=== PATIENT | male | born 1965 | race Caucasian/White ===

== ENCOUNTER 2017-02-27 07:58 | Day surgery (SDC) | payer BC ==
[~2017-02-27 07:58] MED LIST: Buffered Lidocaine 0.9% SYRIN* 5 ML/SYR SYRINGE INTRADERM ONE
[2017-02-27] MEDS ORDERED: Lidocain 1% EPI 1:100,000 * 30 ML MDV ONE (08:46)
[2017-02-27] MEDS ORDERED: BSS OPTH.SOL* BTL ONE (08:46)
[2017-02-27] MEDS ORDERED: Neomycin/Polymy/Dex OPHTH.OIN* 3.5 GM ONE (08:47)
[2017-02-27] MEDS ORDERED: Midazolam* 1 MG/ML 2 ML VIAL (2 MG) ONE ×3 (08:52→09:32)
[2017-02-27] MEDS ORDERED: fentaNYL* 50 MCG/ML 2 ML VIAL (100 MCG VIAL) ONE (08:52)
[2017-02-27] MEDS ORDERED: Bacitracin OPHTH.OINT* 3.5 GM ONE (08:53)
[2017-02-27 09:59] VITALS: BP 111/68
--- NOTE | 2017-02-27 14:53 | OP ---
DATE OF OPERATION: 02/27/17 - [facility] DATE OF : 63 SURGEON: Twin Hernandez MD HIV NURSE: None. ANESTHESIOLOGIST: Hernandez Cabrera MD ANESTHESIA: Local with MAC. PRE-OP DIAGNOSIS: Basal cell carcinoma, left lower lid at margin. POST-OP DIAGNOSIS: Basal cell carcinoma, left lower lid at margin. OPERATIVE PROCEDURE: Wedge resection of left lower lid with lateral canthotomy and inferior cantholysis for reconstruction for biopsy of basal cell carcinoma, left lower lid. COMPLICATIONS: None. BLOOD LOSS: Minimal. DESCRIPTION OF PROCEDURE: The patient was brought to the operating room and a marking pen was used to lars the margins of the pentagonal incision surrounding the suspicious lesion of the left lower lid. The patient was given a small amount of intravenous sedation. At that time, 1 cc of 1% lidocaine with epinephrine was injected into the left lower eyelid. The patient was subsequently prepped and draped in the usual sterile fashion for ophthalmic surgery. A Reddy tenotomy scissors was used to cut through the full thickness of eyelid and create the pentagonal resection specimen. The specimen was tagged at the lateral margin with a suture and taken off the field. Hemostasis was achieved with gentle cauterization as needed. Inspection of the defect revealed an approximately 12-mm defect of the left lower lid. Although one could hold the edges adjacent for closure, this seemed to put undue tension on the lower eyelid. Thus, a small amount of 1% lidocaine with epinephrine was injected into the lateral canthal area and a lateral canthotomy followed by an inferior cantholysis was performed. This freed the lateral aspect of the lower lid sufficiently to allow a non-tension closure of the original wound. A series of interrupted 6-0 Vicryl sutures were used to close the deep planes including the tarsal plate. A series of 6-0 silk sutures were used to close the lid margin starting at the vera line and moving anteriorly and inferiorly through the skin. A 6-0 silk was also used to close the skin defect at the lateral canthotomy site. At the end of the case, the eyelid appeared without undue tension and with smooth contour. There was no active bleeding. The patient was able to open and close the eye smoothly. Topical bacitracin ointment was placed on the wounds in the eye. The specimen was sent to the pathology lab. The patient was sent to recovery room in stable condition with postop instructions and followup appointment given. [id number]/[facility] #: [id number] ALFREDO
== END 2017-02-27 10:08 | disposition home or self-care (01) ==
LOC: OREAST 07:58
PROVIDERS: ATTEND Ophthalmology
DX: C44.119 Basal cell carcinoma of skin of left eyelid, including canthus (principal); I10 Essential (primary) hypertension; Z87.891 Personal history of nicotine dependence; Z79.01 Long term (current) use of anticoagulants; I51.9 Heart disease, unspecified; G47.33 Obstructive sleep apnea (adult) (pediatric)
CPT/HCPCS: 88305; A9270-GY; J2250; J3010

== ENCOUNTER 2017-08-24 05:55 | Day surgery (SDC) | payer OTHER ==
--- NOTE | 2017-08-17 12:06 | HP ---
HISTORY AND PHYSICAL: DATE OF ADMISSION/SURGERY: 08/24/17 DATE OF HISTORY AND PHYSICAL: 08/14/17 SURGEON: Dr. Castillo * (DICTATED BY HERIBERTO ROGERS, EDITED BY DR. CASTILLO ) PROCEDURE: Right shoulder arthroscopic decompression, evaluation and treatment of rotator cuff supraspinatus, distal clavicle resection, and evaluation and treatment of biceps (release if treated). . 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 He was previously diagnosed with a possible partial thickness rotator cuff tendon tear of the supraspinatus. The patient injured himself in November of 2016 when he was stepping down from a truck. He lost balance, caught himself while falling, and grabbed a handle suddenly with his right hand. When he did this he felt a pop in his right shoulder. On 06/05/2017 he then threw a piece of wood and felt again increasing pain in his right shoulder. He reports that his whole arm went numb at that time. Patient has previously been treated with a subacromial cortisone injection which did alleviate some of the constant dull aching and he has been taking Celebrex as well as finished 10 weeks of physical therapy. We had previously discussed a rotator cuff repair in clinic and he is ready to proceed with that surgery at this time. He denies any previous problems with anesthesia and no history of DVT or PE. He is able to walk a city block and a flight of stairs at this time. PAST MEDICAL HISTORY: Significant for numerous cardiac concerns and he has cardiology clearance from 07/26/[address] Ch. 1. Hypertension. 2. Sleep apnea. 3. Premature beats. 4. Cardiomyopathy. 5. Hyperlipidemia. 6. Coronary atherosclerosis. 7. Restless leg syndrome. PAST SURGICAL HISTORY: CURRENT MEDICATIONS: 1. Nitrostat 0.4 mg one sublingual q5 minutes up to three doses as needed. 2. Pantoprazole sodium 40 mg one p.o. b.i.d. 3. Pravastatin sodium 40 mg one by mouth daily. 4. Clopidogrel Bisulfate 75 mg one daily. 5. Atenolol 50 mg 1/2 p.o. a.m. and 1/2 p.m. 6. Aspirin 81 mg daily. 7. Wellbutrin XL 150 mg daily. 8. Multivitamin daily. 9. Singulair 10 mg daily. 10. Ramipril 5 mg daily. ALLERGIES: No known drug allergies. He denies an allergy to tape or adhesive. FAMILY HISTORY: Significant for father with cancer, unknown type, and a mother with hypertension. SOCIAL HISTORY: He is a previous smoker with a 15 pack year history and quitting better than 20 years ago. He endorses drinking 5 to 10 glasses of alcohol weekly. He denies illicit drug use. ROS: Significant for chronic back pain of his lower back as well as the current complaint. Otherwise a 14 point review of systems was negative. Physical Exam: VITAL SIGNS: Height 70", weight 280 pounds, pulse 67, blood pressure 129/87, respiration 15, pain level 2/10, BMI is 40. GENERAL: He is a well-developed, well-nourished 52-year-old male in no acute distress. Alert and oriented x3 with no gross neurologic deficiencies. Ambulating without a limp. HEENT: Normocephalic, atraumatic. Pupils equally round and reactive to light. Extraocular movements intact. NECK: Supple. No palpable cervical lymph nodes. Thyroid is smooth and nontender. CARDIAC: Regular rate and rhythm with a faint murmur. No pedal edema. 2+ radial pulses. PULMONARY: Lungs clear to auscultation bilaterally with no wheezes, rhonchi, or rales. ABDOMEN: Soft and nontender. NEURO: Sensation is intact to light touch. RIGHT UPPER EXTREMITY: Right shoulder exam shows no soft tissue swelling or bruising. Skin is intact. Passive range of motion of the right shoulder is 180 degrees of forward flexion, 90 degrees of external and 70 degrees of internal rotation. Trace positive Neer's. Negative Gomez. Positive pain with supraspinatus stress testing, although no significant weakness. No other pain or weakness with rotator cuff stress testing and no AC joint or proximal biceps tenderness to palpation. Negative Speed's and Renville's test. Neurovascularly intact distally. STUDIES: An MRI on 06/22/2017 showed clear intrasubstance tear of the distal supraspinatus at its insertion, some bony hypertrophic changes of the AC joint, and a small lateral peroneal spur. Proximal long head of the biceps tendon is not visualized consistent with a spontaneous proximal biceps tendon rupture previously. ASSESSMENT: 1. Right distal supraspinatus intrasubstance tear as well as likely spontaneous rupture of the right biceps tendon, and hypertrophic AC joint osteoarthritis. PLAN: 1. To the OR for a right shoulder arthroscopic subacromial decompression, evaluation and treatment of the rotator cuff supraspinatus, possible distal clavicle resection, and evaluation & treatment of biceps ( release) on 2016. 2. He will stop his clopidogrel and aspirin one week prior to his operation. 3. He will followup in clinic 10 to 14 days after operation for suture removal. Pain medication will be prescribed on the day of his surgery. 4. We discussed risks and potential complications including bleeding, infection , nerve or blood vessel injury, shoulder pain, stiffness, osteoarthritis, hardware complications, rotator cuff retear, blood clot. HERIBERTO ROGERS EDITED by Rey Castillo MD [id number]/[facility] #: [id number] ALFREDO
[2017-08-24] MEDS ORDERED: Dexamethasone IV* 4 MG/ML 1 ML (4 MG) IV SLOW PU ONE (06:00)
[2017-08-24] MEDS ORDERED: Famotidine IV* 10 MG/ML 2 ML (20 mg) IV ONE (06:00)
[2017-08-24] MEDS ORDERED: ceFAZolin 2 GM PREMIX (*) 2 GM/50 ML BAG IVPB ONE (06:07)
[2017-08-24] MEDS ORDERED: ceFAZolin 1 GM ADVAN(*) 1 GM ADDV.VIAL IVPB ONE (06:07)
[2017-08-24] MEDS ORDERED: Famotidine IV* 10 MG/ML 2 ML (20 mg) ONE (06:07)
[2017-08-24] MEDS ORDERED: Buffered Lidocaine 0.9% SYRIN* 5 ML/SYR SYRINGE ONE (06:07)
[2017-08-24] MEDS ORDERED: Dexamethasone IV* 4 MG/ML 1 ML (4 MG) ONE (06:07)
[2017-08-24] MEDS ORDERED: EPINEPHrine AMP 1 MG/ML ONE (07:07)
[2017-08-24] MEDS ORDERED: fentaNYL* 50 MCG/ML 2 ML VIAL (100 MCG VIAL) ONE ×2 (07:09→07:47)
[2017-08-24] MEDS ORDERED: Midazolam* 1 MG/ML 10 ML VIAL (10 MG) ONE (07:10)
[2017-08-24] MEDS ORDERED: Atracurium* 10 MG/ML 10 ML VIAL ONE (07:10)
[2017-08-24] MEDS ORDERED: Propofol* 10 MG/ML 20 ML BTL IV PUSH ONE (07:11)
[2017-08-24] MEDS ORDERED: Ketorolac INJ* 30 MG/ML 1 ML VIAL ONE (07:11)
[2017-08-24] MEDS ORDERED: Ondansetron INJ* 2 MG/ML VIAL ONE (07:11)
[2017-08-24] MEDS ORDERED: fentaNYL* 50 MCG/ML 2 ML VIAL (100 MCG VIAL) IV PRN (08:36)
[2017-08-24] MEDS ORDERED: HYDROmorphone INJ* 1 MG/ML CARPUJECT SYRINGE IV PRN (08:36)
[2017-08-24] MEDS ORDERED: DiMENhydriNATE IV* 50 MG/ML VIAL IV PUSH PRN (08:36)
[2017-08-24] MEDS ORDERED: Ondansetron INJ* 2 MG/ML VIAL IV PRN (08:36)
[2017-08-24] MEDS ORDERED: Scopolamine 1.5 mg* PATCH TRANSDERM PRN (08:36)
[2017-08-24] MEDS ORDERED: oxyCODONE/Acetamin 5/325 MG* TAB PO PRN (08:36)
[2017-08-24] MEDS ORDERED: EPHEDrine (Pressors)* 50 MG/ML VIAL ONE (09:16)
[2017-08-24] MEDS ORDERED: Levalbuterol 1.25MG/0.5ML NEB ONE (11:09)
--- NOTE | 2017-08-24 12:14 | RAD ---
HISTORY: Status post peripheral nerve block, right side COMPARISONS: July 15, 2009 VIEWS: 1: frontal portable view of the chest at 11:39 AM FINDINGS: LINES AND TUBES: None. CARDIOMEDIASTINAL SILHOUETTE: The cardiomediastinal silhouette is normal for portable technique. PLEURA: The costophrenic angles are sharp. No pleural abnormalities are noted. There is no appreciable pneumothorax. LUNG PARENCHYMA: The lung volumes are low. The lungs are clear accounting for the phase of respiration. ABDOMEN: The upper abdomen is clear. There is no subphrenic gas. BONES AND SOFT TISSUES: No bone or soft tissue abnormalities are noted. IMPRESSION: LOW LUNG VOLUMES. NO ACTIVE CARDIOPULMONARY DISEASE.
[2017-08-24 12:44] VITALS: BP 124/90
--- NOTE | 2017-08-26 04:12 | OP ---
OPERATIVE NOTE: DATE OF OPERATION: 08/24/17 DATE OF : 63 SURGEON: Miguel Katz MD CART ATTENDANT: HERIBERTO Green A physician dietary assistant was required for the length of the procedure for positioning, instrumentation assistance. ANESTHESIOLOGIST: Dr. Sharath Salmeron. ANESTHESIA: General anesthesia, regional interscalene block anesthesia. PRE-OP DIAGNOSES: 1. Right shoulder rotator cuff tear, high-grade partial thickness undersided. 2. Right shoulder AC joint osteoarthritis and subacromial impingement. 3. Right shoulder possible prior spontaneous proximal biceps rupture. POST-OP DIAGNOSES: 1. Right shoulder rotator cuff tear, supraspinatus, high-grade undersurface. 2. Right shoulder AC joint arthritis and subacromial impingement. 3. Right shoulder prior spontaneous rupture, long head proximal biceps tendon. 4. Right shoulder superior labral tear, bucket-handle type. OPERATIVE PROCEDURE: 1. Right shoulder arthroscopic rotator cuff repair, supraspinatus 2. Right shoulder arthroscopic subacromial decompression 3. Right shoulder arthroscopic distal clavicle resection 4. Right shoulder arthroscopic limited debridement, including superior labrum ANTIBIOTICS: Ancef 2 g IV. IV FLUIDS: 1800 cc crystalloid. COMPLICATIONS: None. SPECIMEN: None. IMPLANTS: Mitek Kemar and Kemar rotator cuff anchor, HEALIX 5.5 mm x1. ESTIMATED BLOOD LOSS: Minimal. 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 This was an injury at work. The patient had right shoulder pain from November on. See history and physical on prior clinic notes for a full history. The patient also just had a sudden pain on June 05 when trying a piece of wood. I suspect it is a proximal biceps tendon rupture at that time. Difficult to know for sure. The patient responded insufficiently to nonoperative management, which included a subacromial cortisone injection, Celebrex, and physical therapy for at least 10 weeks as well as home exercises. The patient opted for surgical management. My history and physical has a correction in it. Radiology read referred to an intrasubstance tear of the distal supraspinatus; but my read in fact showed a high- grade undersurface tear of the anterior aspect of the distal supraspinatus rotator cuff tendon. The patient stopped clopidogrel and aspirin 1 week prior to the procedure. I discussed risks and potential complications of procedure including bleeding, infection, nerve or blood vessel injury, shoulder pain, stiffness, osteoarthritis, hardware complications, rotator cuff re-tear, blood clot. DESCRIPTION OF PROCEDURE: Preoperatively, a written consent was obtained in the preoperative holding. Operative extremity was marked in preoperative holding. Regional anesthetic, interscalene block was performed in preoperative holding by Dr. Salmeron. The patient was taken back to the operating room and placed supine on the operating room table. The patient was sedated and intubated. The patient was transferred into lateral decubitus position with the right shoulder up. Axillary roll placed. Beanbag insufflated. All bony prominences padded. Shoulder was placed at 15 pounds of longitudinal traction with the appropriate forward flexion and abduction of the shoulder. The right shoulder was prepped with ChloraPrep and then draped. Surgical time-out was performed. Right shoulder was entered from posterior with a spinal needle and injected 25 cc of normal saline. A right shoulder posterior glenohumeral joint portal was then established using standard technique. A diagnostic arthroscopy was commenced. Biceps tendon was not visible. There was some fraying about the superior labrum. There was some clear undersurface tearing at the anterior most aspect of the supraspinatus. I looked at the subscapularis with the humeral head posteriorly translated, internally rotated, and externally rotated and there was no tear. No loose bodies in the axillary recess. I established an intra-glenohumeral joint portal using standard technique. I probed the superior labrum. It turned out that there was actually a bucket handle tear of the superior labrum. The tissue looked quite flimsy. I considered it first doing a superior labral repair, although concerned about stiffness that this might engender. I decided doing test the integrity of the labral tissue. I placed my shaver closed to it and the tissue shaved off instantly. This demonstrated how friable and frail this very thin-appearing rim of remaining superior labrum tissue was. It was clearly inadequate for a repair. I debrided some frayed posterosuperior labral tissue and smoothed it out. I then shaved some frayed undersurface anterior supraspinatus tissue to better visualize the tear. I placed a spinal needle from outside the shoulder through the tear and the tissue appeared weak by palpation via the needle. No biceps tendon was visible in the joint. I removed joints and fluid from the shoulder joint and then entered the subacromial space. I entered it from posterior and anterior. I used a 7-mm Mitek plastic cannula anteriorly. I established a lateral subacromial portal using standard technique. I debrided a significant amount of bursitis about the subacromial space. I then visualized the spinal needle and its location in the rotator cuff. I established a posterolateral portal for better visualization. With excellent visualization of the spinal needle's location, I then probed the tissue around the spinal needle. The cuff tissue there appeared very weakened and the probe easily went through the rotator cuff tissue. Therefore, I decided to do a rotator cuff repair, taking down the remaining frayed bits of rotator cuff superiorly. I just placed an arthroscopic shaver within the hole adjacent to the arthroscopic probe. This removed diseased tissue back to a clear rim of healthier rotator cuff tendon. This was a crescent-shaped rotator cuff tear. I cleared off the accompanying footprint on the greater tuberosity with a VAPR electrocautery followed by a shaver and a marcos. I used a grasper to show that the rotator cuff tendon would easily be brought to bone. I next re-positioned my arthroscope in the posterior portal and performed a subacromial decompression of the inferior hook of the anterior aspect of the acromion moving approximately 6 mm. Once this was done, I started my rotator cuff tendon repair. Viewing from posterolateral, I established a superolateral portal. I used an awl and then placed a triple-loaded 5.5 mm suture anchor in the rotator cuff footprint. I placed a 7-mm plastic Mitek cannula in the superolateral portal. I placed 3 horizontal mattress stitches in the supraspinatus tendon, using ideal suture passers, passed from both anterior and posterior. I placed all sutures before tying all my knots. Before cutting my sutures, I tested the integrity of the repair, both visually and with an arthroscopic probe. It was a phenomenal repair and I was very happy with it. Very tight with a nice closure of tissue. I, therefore, cut the suture ends. I next approached the AC joint. I debrided some bursitic tissue about the AC joint with my VAPR. Using a marcos, I debrided 8 mm off of the distal end of the clavicle, opening up that joint nicely. No spurs remained of the acromion or distal clavicle. I removed all instruments and fluid from the subacromial space. Skin incisions were closed with [id number] stitches using nylon 4-0 suture. Xeroform, 4x4s, ABDs, foam tape. Sling and abduction pillow. The patient was awakened and extubated and transferred to the PACU. DISPOSITION: The patient was to be discharged home when medically stable. He may resume his aspirin and clopidogrel on postoperative day 1. He was given Percocet for pain control. The patient will follow up with me in 10 to 14 days postoperatively. The patient will start physical therapy this coming week prior to his clinic visit with me. [id number]/[facility] #: [id number] ALFREDO
[2017-08-27] MEDS ORDERED: Scopolamine PATCH Remove* 1 NOTE MISC PATCH OFF ONE (08:37)
== END 2017-08-24 12:48 | disposition home or self-care (01) ==
LOC: OR 05:55
PROVIDERS: ATTEND Orthopaedic Surgery
DX: S46.011A Strain of muscle(s) and tendon(s) of the rotator cuff of right shoulder, initial encounter (principal); M75.41 Impingement syndrome of right shoulder; S46.111A Strain of muscle, fascia and tendon of long head of biceps, right arm, initial encounter; S43.491A Other sprain of right shoulder joint, initial encounter; X50.0XXA Overexertion from strenuous movement or load, initial encounter; Y93.89 Activity, other specified; Y92.89 Other specified places as the place of occurrence of the external cause; Y99.0 Civilian activity done for income or pay; M19.111 Post-traumatic osteoarthritis, right shoulder; I10 Essential (primary) hypertension; G47.30 Sleep apnea, unspecified; I49.40 Unspecified premature depolarization; I42.9 Cardiomyopathy, unspecified; I25.10 Atherosclerotic heart disease of native coronary artery without angina pectoris; G25.81 Restless legs syndrome; Z79.899 Other long term (current) drug therapy; Z79.01 Long term (current) use of anticoagulants
CPT/HCPCS: 71010; A9270-GY; J0171; J0690; J1100; J1885; J2250; J2405; J2704; J3010

== ENCOUNTER 2019-02-25 01:11 | Emergency (ER) | payer BC, OTHER ==
--- OUTSIDE RECORDS SUMMARY | 2019-02-25 01:32 | XMS REPORT | Continuity of Care Document ---
:1965 External Reference #:[id number] Author Name Vi Carvajal Care Team Providers Name Role Phone Michael hC MD Primary Care Physician Unavailable Payers Date Identification Numbers Payment Provider Subscriber Policy Number: [id number] [facility] [place] [facility] Jude Davis Group Number: [id number] [address] [address] PayID: [id number] SUDHAKAR Burgos [id number] Effective: 2016 Policy Number: [id number] Shakeelottoniel Keen Brand Onset: 2016 Group Name: [phone] [address] [address] PayID: [id number] [place] [address] Expires: 2012 Policy Number: [id number] [employer] Jude Davis Group Number: [id number] [address] PayID: [id number] [place] [address] Effective: 2012 Policy Number: [id number] Of [facility] Jude Davis Expires: 2016 Group Number: [id number] [address] [address] PayID: [id number] SUDHAKAR Zee [id number] Effective: 2016 Policy Number: [id number] Nemahaottoniel Keen Brand Onset: 2016 Group Name: (M) [phone] [address] [address] PayID: [id number] [address] Problems Active Problems Provider Date Coronary arteriosclerosis Vidal North M.D. Onset: 01/01/2012 Benign essential hypertension Vidal North M.D. Onset: 01/01/2012 Hyperlipidemia Vidal North M.D. Onset: 01/01/2012 Electrocardiogram abnormal Vidal North M.D. Onset: 01/01/2012 Restrictive cardiomyopathy secondary to Vidal North M.D. Onset: granulomas Premature beats Vidal North M.D. Onset: 06/06/2013 Obstructive sleep apnea syndrome Vidal North M.D. Onset: 2013 Essential hypertension Vidal North M.D. Onset: 07/28/2015 Localized, primary osteoarthritis of Miguel Katz MD Onset: 12/13/2017 the shoulder region Strain of muscle, fascia and tendon of Miguel Katz MD Onset: 2017 long head of biceps, right arm, subsequent encounter Family History Date Family Member(s) Observation Comments General Heart Disease General Lung Cancer : (age 73 Father due to heart lung cancer, diabetes, Years) failure htn Paternal Grandfather due to UT () - multiple UT's, pacemaker Social History Type Date Description Comments Sex Unknown Marital Status Lives With Occupation [employer] Tobacco Use Start: Unknown Quit 12 years ago 1/2 ppd for 10 years ETOH Use Denies alcohol use Tobacco Use Start: Unknown End: Patient is a former quit in 1997 Unknown smoker Recreational Drug Use Denies Drug Use Smoking Status Reviewed: 02/13/19 Patient is a former quit in 1997 smoker Exercise Type/Frequency Does not exercise Allergies, Adverse Reactions, Alerts Description No Known Drug Allergies Medications Active Medications SIG Qnty Indications Ordering Provider Date Pantoprazole Sodium 1 po bid Unknown 07/29/2009 40mg Tablets Pravastatin Sodium 1 by mouth every 90tabs Vidal S. 03/17/2009 40mg day Lucero North Tablets Clopidogrel Bisulfate take 1 tablet 90tabs Antoniotajojo S. 03/17/2009 daily Lucero North 75mg Tablets Atenolol 1/2 po am and 1/2 90tabs Qutaybzeeshan S. 50mg Tablets pm Lucero North Aspirin 1 po qd Unknown 81mg Tablets Wellbutrin XL 1 po qd Unknown 150mg Tablets ER 24HR Multi For Him once a day Unknown Tablets Singulair 1 by mouth every Unknown 10mg Tablets day Ramipril take 1 capsule 90caps Qutaybeh S. 5mg Capsules daily Lucero North Sildenafil Citrate 1 by mouth 30 min Unknown 25mg before sexual Tablets activity as needed. max 1 dose in a day History Medications Oxycodone-Acetaminophen 1-2 by mouth 42tabs Miguel Emery 08/24/2017 - 5-325mg Tablets every 4-6 MD Sterling 10/03/2017 hours as needed for pain. Celebrex 1 tab by 60caps S46.01 Miguel Emery 04/04/2017 - 100mg Capsules mouth twice 1D MD Sterling 10/03/2017 a day as needed Nitrostat one sl q5min 100tabs Qutaybeh S. 06/06/2013 - 0.4mg Tablets Sub up to 3 [facility], 10/03/2017 doses as M.D. needed Altace 1 po qd 90caps Qutaybeh S. 01/12/2010 - 5mg Capsules [facility], 05/08/2011 Lucero Niaspan 4 tab pm 360tabs Qutaybeh S. 04/28/2009 - 500mg Tablets ER [facility], 10/19/2014 Jose.DHeather Imdur 1 po qd 30tabs Qutaybeh S. 03/17/2009 - 30mg Tablets ER 24HR [facility], 11/04/2009 Lucero Altace 1 po qd 90caps Qutaybeh S. 03/17/2009 - 2.5mg Capsules [facility], 01/12/2010 M.DHeather Nitroquick 1 s/l prn 30tabs Qutaybeh S. 02/19/2009 - 0.4mg Tablets Sub chest pain, [facility], 06/06/2013 q 5 min. up M.D. to 3 tabs Pantoprazole Sodium 1 po qd 30tabs Unknown - 40mg Tablets DR 07/29/2009 Pravastatin Sodium 1 po qd 90tabs Qutaybeh S. - 20mg Tablets Maghaydah, 03/17/2009 Lucero Albuterol 2 puffs qid 1units Unknown - 90mcg/Act Aerosol prn 01/01/2012 Growth Hormone 1 tab qod Unknown - 09/06/2016 Cetirizine HCL 1 by mouth 30tabs Unknown - 10mg Tablets every day 12/23/2015 Medications Administered in Office Medication SIG Qnty Indications Ordering Provider Date Depomedrol 40MG Miguel Katz MD 01/21/2019 Injection Depomedrol 40MG Miguel Katz MD 04/04/2017 Injection Vital Signs Date Vital Result Comment 02/13/2019 3:51pm Height 71 inches 5'11" Weight 300.69 lb Clothes/shoes Heart Rate 84 /min Rdaial BP Systolic Sitting 132 mmHg Lue reg cuff BP Diastolic Sitting 80 mmHg Lue reg cuff BP Systolic Standing 128 mmHg Lue reg cuff BP Diastolic Standing 80 mmHg Lue reg cuff BMI (Body Mass Index) 41.9 kg/m2 Ejection Fraction 50-55% echo 07/10/2018 01/21/2019 1:57pm Height 71 inches 5'11" Weight 275.00 lb Heart Rate 85 /min Respiratory Rate 20 /min Pain Level 2 O2 % BldC Oximetry 95 % BMI (Body Mass Index) 38.4 kg/m2 12/10/2018 2:21pm Height 71 inches 5'11" Weight 275.00 lb Heart Rate 72 /min BP Systolic 132 mmHg BP Diastolic 78 mmHg Respiratory Rate 12 /min Pain Level 2 BMI (Body Mass Index) 38.4 kg/m2 08/27/2018 11:28am Height 71 inches 5'11" Weight 280.00 lb Heart Rate 82 /min BP Systolic 112 mmHg BP Diastolic 84 mmHg Respiratory Rate 14 /min Body Temperature 97.2 F Pain Level 3 BMI (Body Mass Index) 39.0 kg/m2 06/12/2018 4:04pm Height 70 inches 5'10" Weight 285.00 lb W/ Shoes Heart Rate 72 /min BP Systolic Sitting 115 mmHg Lue Large Cuff BP Diastolic Sitting 88 mmHg Lue Large Cuff BMI (Body Mass Index) 40.9 kg/m2 Ejection Fraction 50-55% ECHO 07/05/17 03/19/2018 11:00am Height 70 inches 5'10" Weight 270.00 lb Heart Rate 81 /min Respiratory Rate 18 /min Body Temperature 97.6 F Pain Level 1 BMI (Body Mass Index) 38.7 kg/m2 02/12/2018 8:25am Height 70 inches 5'10" Weight 280.00 lb Heart Rate 84 /min BP Systolic Sitting 158 mmHg BP Diastolic Sitting 88 mmHg Respiratory Rate 16 /min Body Temperature 97.5 F Pain Level 2 BMI (Body Mass Index) 40.2 kg/m2 12/13/2017 8:16am Height 70 inches 5'10" Heart Rate 100 /min BP Systolic 118 mmHg BP Diastolic 78 mmHg Respiratory Rate 16 /min Body Temperature 97.6 F Pain Level 2 11/01/2017 8:17am Height 70 inches 5'10" Weight 280.00 lb BP Systolic 119 mmHg BP Diastolic 83 mmHg Respiratory Rate 15 /min Pain Level 1 BMI (Body Mass Index) 40.2 kg/m2 10/04/2017 9:01am Height 70 inches 5'10" Weight 280.00 lb Heart Rate 113 /min Respiratory Rate 15 /min Body Temperature 96.8 F Pain Level 1 BMI (Body Mass Index) 40.2 kg/m2 09/06/2017 10:47am Height 70 inches 5'10" Weight 280.00 lb Heart Rate 67 /min Respiratory Rate 15 /min Body Temperature 96.7 F Pain Level 2 BMI (Body Mass Index) 40.2 kg/m2 08/14/2017 10:12am Height 70 inches 5'10" Weight 280.00 lb Heart Rate 67 /min BP Systolic 129 mmHg BP Diastolic 87 mmHg Respiratory Rate 15 /min Pain Level 2 BMI (Body Mass Index) 40.2 kg/m2 07/03/2017 12:55pm Height 70 inches 5'10" Weight 280.00 lb Heart Rate 78 /min Respiratory Rate 16 /min Body Temperature 97.1 F Pain Level 2 BMI (Body Mass Index) 40.2 kg/m2 05/24/2017 3:55pm Height 70 inches 5'10" Weight 286.00 lb Heart Rate 85 /min BP Systolic 117 mmHg BP Diastolic 76 mmHg Respiratory Rate 14 /min Pain Level 2 BMI (Body Mass Index) 41.0 kg/m2 05/17/2017 8:12am Height 70 inches 5'10" Weight 286.00 lb w/ shoes Heart Rate 62 /min reg BP Systolic Sitting 126 mmHg Lue, lg cuff BP Diastolic Sitting 94 mmHg Lue, lg cuff Respiratory Rate 16 /min BMI (Body Mass Index) 41.0 kg/m2 Ejection Fraction 50-55% as of 06/2016 echo 04/04/2017 3:28pm Height 70 inches 5'10" Weight 270.00 lb Respiratory Rate 16 /min Pain Level 2 BMI (Body Mass Index) 38.7 kg/m2 03/22/2017 3:26pm Height 70 inches 5'10" Weight 270.00 lb BP Systolic 116 mmHg BP Diastolic 81 mmHg Respiratory Rate 15 /min Pain Level 9 BMI (Body Mass Index) 38.7 kg/m2 09/07/2016 3:57pm Height 70.5 inches 5'10.50" Weight 286.75 lb with shoes Heart Rate 78 /min BP Systolic Sitting 132 mmHg LA lrg cuff BP Diastolic Sitting 86 mmHg LA lrg cuff BMI (Body Mass Index) 40.6 kg/m2 Ejection Fraction 50% - 55% echo 07/03/16 07/04/2016 3:04pm Height 70.5 inches 5'10.50" Weight 284.00 lb BP Systolic 119 mmHg BP Diastolic 90 mmHg Pain Level 4 BMI (Body Mass Index) 40.2 kg/m2 12/24/2015 8:16am Height 71 inches 5'11" Weight 274.25 lb with shoes Heart Rate 66 /min BP Systolic Sitting 116 mmHg LA, large BP Diastolic Sitting 72 mmHg LA, large BMI (Body Mass Index) 38.2 kg/m2 Ejection Fraction 45-50% echo 07/28/15 07/28/2015 8:57am Height 71 inches 5'11" Weight 274.00 lb w/shoes Heart Rate 72 /min BP Systolic Sitting 142 mmHg LA reg cuff BP Diastolic Sitting 98 mmHg LA reg cuff BMI (Body Mass Index) 38.2 kg/m2 Ejection Fraction 55 Stress echo 01/13/14 10/20/2014 3:15pm Height 71 inches 5'11" Weight 281.50 lb Heart Rate 70 /min BP Systolic 132 mmHg LA large BP Diastolic 100 mmHg LA large BMI (Body Mass Index) 39.3 kg/m2 04/09/2014 9:31am Height 71 inches 5'11" Weight 273.00 lb Heart Rate 78 /min BP Systolic Sitting 122 mmHg BP Diastolic Sitting 90 mmHg Pain Level 1 back BMI (Body Mass Index) 38.1 kg/m2 03/12/2014 11:01am Height 71 inches 5'11" Weight 270.00 lb Heart Rate 60 /min BP Systolic Sitting 136 mmHg BP Diastolic Sitting 80 mmHg Pain Level 0 BMI (Body Mass Index) 37.7 kg/m2 01/16/2014 8:07am Height 71 inches 5'11" Weight 266.00 lb Heart Rate 68 /min BP Systolic Sitting 124 mmHg BP Diastolic Sitting 82 mmHg BMI (Body Mass Index) 37.1 kg/m2 06/06/2013 2:56pm Height 71 inches 5'11" Weight 270.00 lb Heart Rate 96 /min BP Systolic Sitting 136 mmHg BP Diastolic Sitting 100 mmHg Respiratory Rate 16 /min BMI (Body Mass Index) 37.7 kg/m2 01/01/2012 9:39am Height 71 inches 5'11" Weight 273.00 lb Heart Rate 67 /min BP Systolic Sitting 106 mmHg BP Diastolic Sitting 76 mmHg BMI (Body Mass Index) 38.1 kg/m2 05/08/2011 10:08am Height 71 inches 5'11" Weight 257.00 lb BP Systolic Sitting 118 mmHg L BP Diastolic Sitting 78 mmHg L BMI (Body Mass Index) 35.8 kg/m2 10/14/2010 9:58am Weight 286.00 lb Heart Rate 60 /min BP Systolic Sitting 112 mmHg BP Diastolic Sitting 76 mmHg 01/12/2010 8:59am Weight 276.00 lb Heart Rate 70 /min BP Systolic 116 mmHg BP Diastolic 90 mmHg Respiratory Rate 16 /min 07/29/2009 2:46pm Height 72 inches 6'0" Weight 280.00 lb Heart Rate 88 /min BP Systolic Sitting 104 mmHg L BP Diastolic Sitting 80 mmHg L BMI (Body Mass Index) 38.0 kg/m2 03/17/2009 9:30am Weight 278.00 lb Heart Rate 60 /min BP Systolic Sitting 120 mmHg BP Diastolic Sitting 86 mmHg Respiratory Rate 16 /min 02/19/2009 3:33pm Height 72 inches 6'0" Weight 283.00 lb Heart Rate 78 /min BP Systolic Sitting 130 mmHg BP Diastolic Sitting 80 mmHg BMI (Body Mass Index) 38.4 kg/m2 01/14/2009 9:15am Height 72 inches 6'0" Weight 283.00 lb Heart Rate 57 /min BP Systolic Sitting 130 mmHg left arm, right arm 122/100 BP Diastolic Sitting 100 mmHg left arm, right arm 122/100 BP Systolic Standing 120 mmHg BP Diastolic Standing 100 mmHg BMI (Body Mass Index) 38.4 kg/m2 Results Test Date Facility Test Result H/L Range Note Laboratory test finding 01/27/2017 [facility] Alt 56 U/L High 7-[address] [place] [address] [phone] Ast 50 U/L High 13-39 Lipid Profile 01/27/2017 [facility] Triglycerides 90 mg/dL N 1 (Trig/Chol/HDL) [address] [place] [address] [phone] Cholesterol 153 mg/dL N 2 HDL Cholesterol 35.7 mg/dL N 3 LDL Cholesterol 99 mg/dL N 4 Comp Metabolic Panel 01/27/2017 [facility] Sodium 135 mmol/L N 133-145 [address] [place] [address] [phone] Potassium 4.3 mmol/L N 3.5-5.0 Chloride 105 mmol/L N 101-111 Co2 Carbon Dioxide 24 mmol/L N 22-32 Anion Gap 6 mmol/L N 2-11 Glucose 104 mg/dL High 70-100 Blood Urea Nitrogen 11 mg/dL N 6-24 Creatinine 0.86 mg/dL N 0.67-1.17 BUN/Creatinine Ratio 12.8 N 8-20 Calcium 8.9 mg/dL N 8.6-10.3 Total Protein 6.6 g/dL N 6.4-8.9 Albumin 3.8 g/dL N 3.2-5.2 Globulin 2.8 g/dL N 2-4 Albumin/Globulin Ratio 1.4 N 1-3 Total Bilirubin 0.50 mg/dL N 0.2-1.0 Alkaline Phosphatase 74 U/L N 34-104 Egfr Non- 93.4 N >60 Egfr 120.1 N >60 5 Laboratory test finding 12/18/2015 [facility] Alt 80 U/L High 7-52 6 [address] [place] [address] [phone] Ast 77 U/L High 13-39 Lipid Panel - 12/18/2015 [facility] Creatine 133 U/L N 10-[address] Kinase(CK) [place] [address] [phone] Comp Metabolic 12/18/2015 [facility] Sodium 138 N 133-[address] mmol/[place] [address] [phone] Potassium 4.2 mmol/L N 3.5-5.0 Chloride 109 mmol/L N 101-111 Co2 Carbon Dioxide 22 mmol/L N 22-32 Anion Gap 7 mmol/L N 2-11 Glucose 104 mg/dL High 70-100 Blood Urea Nitrogen 8 mg/dL N 6-24 Creatinine 0.93 mg/dL N 0.67-1.17 BUN/Creatinine Ratio 8.6 N 8-20 Calcium 8.8 mg/dL N 8.6-10.3 Total Protein 6.2 g/dL Low 6.4-8.9 Albumin 3.7 g/dL N 3.2-5.2 Globulin 2.5 g/dL N 2-4 Albumin/Globulin Ratio 1.5 N 1-3 Total Bilirubin 0.60 mg/dL N 0.2-1.0 Alkaline Phosphatase 69 U/L N 34-104 Egfr Non- 85.7 N >60 Egfr 110.2 N >60 8 Lipid Profile 12/18/2015 [facility] Triglycerides 118 mg/dL N 9 (Trig/Chol/HDL) [address] [place] [address] [phone] Cholesterol 114 mg/dL N 10 HDL Cholesterol 21.6 mg/dL N 11 LDL Cholesterol 69 mg/dL N 12 Lipid Panel - 07/24/2015 [facility] Creatine 135 U/L N 10-223 [address] Kinase(CK) [place] [address] [phone] Comp Metabolic 07/24/2015 [facility] Sodium 135 N 133-[address] mmol/[place] [address] [phone] Potassium 4.4 mmol/L N 3.5-5.0 Chloride 105 mmol/L N 101-111 Co2 Carbon Dioxide 23 mmol/L N 22-32 Anion Gap 7 mmol/L N 2-11 Glucose 92 mg/dL N 70-100 Blood Urea Nitrogen 10 mg/dL N 6-24 Creatinine 0.87 mg/dL N 0.67-1.17 BUN/Creatinine Ratio 11.5 N 8-20 Calcium 9.1 mg/dL N 8.6-10.3 Total Protein 6.7 g/dL N 6.4-8.9 Albumin 4.0 g/dL N 3.2-5.2 Globulin 2.7 g/dL N 2-4 Albumin/Globulin Ratio 1.5 N 1-3 Total Bilirubin 0.70 mg/dL N 0.2-1.0 Alkaline Phosphatase 77 U/L N 34-104 Egfr Non- 92.5 N >60 Egfr 119.0 N >60 14 Lipid Profile 07/24/2015 [facility] Triglycerides 124 mg/dL N 15 (Trig/Chol/HDL) [address] [place] [address] [phone] Cholesterol 168 mg/dL N 16 HDL Cholesterol 26.2 mg/dL N 17 LDL Cholesterol 117 mg/dL N 18 Laboratory test finding 07/24/2015 [facility] Ast 167 U/L High 13-[address] [place] [address] [phone] Alt 120 U/L High 7-52 Lipid Panel - 05/08/2015 [facility] Creatine 132 U/L N 10-[address] Kinase(CK) [place] [address] [phone] Comp Metabolic 05/08/2015 [facility] Sodium 137 N 133-[address] mmol/[place] [address] [phone] Potassium 4.4 mmol/L N 3.5-5.0 Chloride 106 mmol/L N 101-111 Co2 Carbon Dioxide 24 mmol/L N 22-32 Anion Gap 7 mmol/L N 2-11 Glucose 98 mg/dL N 70-100 Blood Urea Nitrogen 9 mg/dL N 6-24 Creatinine 0.85 mg/dL N 0.67-1.17 BUN/Creatinine Ratio 10.6 N 8-20 Calcium 8.9 mg/dL N 8.6-10.3 Total Protein 6.5 g/dL N 6.4-8.9 Albumin 3.9 g/dL N 3.2-5.2 Globulin 2.6 g/dL N 2-4 Albumin/Globulin Ratio 1.5 N 1-3 Total Bilirubin 0.40 mg/dL N 0.2-1.0 Alkaline Phosphatase 69 U/L N 34-104 Egfr Non- 95.4 N >60 Egfr 122.7 N >60 19 Lipid Profile 05/08/2015 [facility] Triglycerides 158 mg/dL N 20 (Trig/Chol/HDL) [address] [place] [address] [phone] Cholesterol 158 mg/dL N 21 HDL Cholesterol 24.2 mg/dL N 22 LDL Cholesterol 102 mg/dL N 23 Laboratory test finding 05/08/2015 [facility] Alt 123 U/L High 7-52 [address] [place] [address] [phone] Ast 129 U/L High 13-39 Basic Metabolic Panel 01/02/2015 [facility] Sodium 133 mmol/L N 133-145 [address] [place] [address] [phone] Potassium 4.2 mmol/L N 3.5-5.0 Chloride 107 mmol/L N 101-111 Co2 Carbon Dioxide 22 mmol/L N 22-32 Anion Gap 4 mmol/L N 2-11 Glucose 99 mg/dL N 70-100 Blood Urea Nitrogen 9 mg/dL N 6-24 Creatinine 0.86 mg/dL N 0.67-1.17 BUN/Creatinine Ratio 10.5 N 8-20 Calcium 8.8 mg/dL N 8.6-10.3 Egfr Non- 94.1 N >60 Egfr 121.1 N >60 24 Order 01/20/2014 [facility] Holter Monitor <pending> [address] [place] [address] [phone] Comp Metabolic 01/10/2014 [facility] Sodium 135 mmol/L N 133- 145 25 Panel [address] [place] [address] [phone] Potassium 4.5 mmol/L N 3.7-5.6 Chloride 103 mmol/L N 101-111 Co2 Carbon Dioxide 24 mmol/L N 22-32 Anion Gap 8 mmol/L N 2-11 Glucose 97 mg/dL N 70-100 Blood Urea Nitrogen 9 mg/dL N 6-24 Creatinine 0.97 mg/dL N 0.67-1.17 BUN/Creatinine Ratio 9.3 N 8-20 Calcium 9.4 mg/dL N 8.6-10.3 Total Protein 6.9 g/dL N 6.4-8.9 Albumin 4.3 g/dL N 3.2-5.2 Globulin 2.6 g/dL N 2-4 Albumin/Globulin Ratio 1.7 N 1-3 Total Bilirubin 0.80 mg/dL N 0.2-1.0 Alkaline Phosphatase 55 U/L N 34-104 Alt 55 U/L High 7-52 Ast 52 U/L High 13-39 Egfr Non- 82.3 N >60 Egfr 105.8 N >60 26 Lipid Profile 01/10/2014 [facility] Triglycerides 97 mg/dL N 27 (Trig/Chol/HDL) [address] [place] [address] [phone] Cholesterol 142 mg/dL N 28 HDL Cholesterol 30.9 mg/dL N 29 LDL Cholesterol 92 mg/dL N 30 Laboratory 01/10/2014 [facility] Hepatitis C Nonreactive N Nonreactive test finding [address] [facility] [place] [address] [phone] Comp Metabolic 11/18/2011 [facility] Sodium 137 mmol/L 135- 145 Panel [address] [place] [address] [phone] Potassium 3.7 mmol/L 3.5-5.0 Chloride 106 mmol/L 101-111 Co2 (Carbon Dioxide) 20.0 mmol/L Low 22-32 Anion Gap 11.0 mmol/L 2-11 31 Glucose 80 mg/dL 70-100 BUN 11 mg/dL 6-24 Creatinine 0.9 mg/dL 0.50-1.40 One Over Creatinine 1.11 BUN/Creatinine Ratio 12.2 8-20 Calcium 9.1 mg/dL 8.1-9.9 Total Protein 6.4 GM/DL 6.2-8.1 Albumin 4.1 GM/DL 3.6-5.4 Globulin 2.3 GM/DL 2-4 Albumin/Globulin Ratio 1.8 1-3 Bilirubin Total 1.1 mg/dL 0.4-1.5 32 Alkaline Phosphatase 42 U/L 39-117 Alt (SGPT) 31 U/L 17-63 Ast (Sgot) 38 U/L 12-42 eGFR Non- 90.4 > 60 eGFR 116.3 > 60 33 Lipid Profile 11/18/2011 [facility] Triglyceride 57 mg/dL 40- 200 (Trig/Chol/HDL) [address] [place] [address] [phone] Cholesterol 161 mg/dL Less Than 200 34 High Density Lipoprotein 37 mg/dL Low 40-60 35 Cholesterol/HDL Ratio 4.35 AVERAGE 1-4.97 Low Density Lipoprotein 113 mg/dL High Less Than 100 36 Laboratory test 11/18/2011 [facility] Hemoglobin A1c 5.5 % Less Than [address] [place] [address] [phone] Lipid Profile 06/04/2009 [facility] Triglyceride 221 High 40- 200 38 (Trig/Chol/HDL) [address] mg/[place] [address] [phone] Cholesterol 167 mg/dL Less Than 200 39 High Density Lipoprotein 22 mg/dL Low 40-60 40 Cholesterol/HDL Ratio 7.59 AVERAGE High 1-4.97 Low Density Lipoprotein 101 mg/dL High Less Than 100 41 Comp Metabolic Panel 06/04/2009 [facility] Sodium 138 mmol/L 135-[address] [place] [address] [phone] Potassium 4.4 mmol/L 3.5-5.0 Chloride 108 mmol/L 101-111 Co2 (Carbon Dioxide) 25.0 mmol/L 22-32 Anion Gap 5.0 mmol/L 2-11 42 Glucose 91 mg/dL 70-100 43 BUN 8 mg/dL 6-24 Creatinine 1.00 mg/dL 0.50-1.40 One Over Creatinine 1.00 BUN/Creatinine Ratio 8.0 8-20 Calcium 9.5 mg/dL 8.1-9.9 44 Total Protein 6.5 GM/DL 6.2-8.1 Albumin 4.2 GM/DL 3.6-5.4 Globulin 2.3 GM/DL 2-4 Albumin/Globulin Ratio 1.8 1-3 Bilirubin Total 1.0 mg/dL 0.4-1.5 45 Alkaline Phosphatase 59 U/L 39-117 Alt (SGPT) 40 U/L 17-63 Ast (Sgot) 28 U/L 12-42 eGFR Non- 86.3 > 60 eGFR 104.4 > 60 46 Lipid Panel - 06/04/2009 [facility] CPK (Creatine 137 U/L 0- [address] Kinase) [place] [address] [phone] 1 Desirable <150 Borderline high 150-199 High 200-499 Very High >500 2 Desirable <200 Borderline high 200-239 High >239 3 Low <40 Desirable: 40-60 High: >60 4 Desirable: <100 mg/dL Near Optimal: 100-129 mg/dL Borderline High: 130-159 mg/dL High: 160-189 mg/dL Very High: >189 mg/dL 5 Because ethnic data is not always readily available, this report includes an eGFR for both -Americans and non- Americans. The National Kidney Disease Education Program (NKDEP) does not endorse the use of the MDRD equation for patients that are not between the ages of 18 and 70, are , have extremes of body size, muscle mass, or nutritional status, or are non- or non-. According to the National Kidney Foundation, irrespective of diagnosis, the stage of the disease is based on the level of kidney function: Stage Description GFR(mL/min/1.73 m(2)) 1 Kidney damage with normal or decreased GFR 90 2 Kidney damage with mild decrease in GFR 60-89 3 Moderate decrease in GFR 30-59 4 Severe decrease in GFR 15-29 5 Kidney failure <15 (or dialysis) 6 FASTING 7 FASTING 8 Because ethnic data is not always readily available, this report includes an eGFR for both -Americans and non- Americans. The National Kidney Disease Education Program (NKDEP) does not endorse the use of the MDRD equation for patients that are not between the ages of 18 and 70, are , have extremes of body size, muscle mass, or nutritional status, or are non- or non-. According to the National Kidney Foundation, irrespective of diagnosis, the stage of the disease is based on the level of kidney function: Stage Description GFR(mL/min/1.73 m(2)) 1 Kidney damage with normal or decreased GFR 90 2 Kidney damage with mild decrease in GFR 60-89 3 Moderate decrease in GFR 30-59 4 Severe decrease in GFR 15-29 5 Kidney failure <15 (or dialysis) 9 Desirable <150 Borderline high 150-199 High 200-499 Very High >500 10 Desirable <200 Borderline high 200-239 High >239 11 Low <40 Desirable: 40-60 High: >60 12 Desirable: <100 mg/dL Near Optimal: 100-129 mg/dL Borderline High: 130-159 mg/dL High: 160-189 mg/dL Very High: >189 mg/dL 13 FASTING 14 Because ethnic data is not always readily available, this report includes an eGFR for both -Americans and non- Americans. The National Kidney Disease Education Program (NKDEP) does not endorse the use of the MDRD equation for patients that are not between the ages of 18 and 70, are , have extremes of body size, muscle mass, or nutritional status, or are non- or non-. According to the National Kidney Foundation, irrespective of diagnosis, the stage of the disease is based on the level of kidney function: Stage Description GFR(mL/min/1.73 m(2)) 1 Kidney damage with normal or decreased GFR 90 2 Kidney damage with mild decrease in GFR 60-89 3 Moderate decrease in GFR 30-59 4 Severe decrease in GFR 15-29 5 Kidney failure <15 (or dialysis) 15 Desirable <150 Borderline high 150-199 High 200-499 Very High >500 16 Desirable <200 Borderline high 200-239 High >239 17 Low <40 Desirable: 40-60 High: >60 18 Desirable: <100 mg/dL Near Optimal: 100-129 mg/dL Borderline High: 130-159 mg/dL High: 160-189 mg/dL Very High: >189 mg/dL 19 Because ethnic data is not always readily available, this report includes an eGFR for both -Americans and non- Americans. The National Kidney Disease Education Program (NKDEP) does not endorse the use of the MDRD equation for patients that are not between the ages of 18 and 70, are , have extremes of body size, muscle mass, or nutritional status, or are non- or non-. According to the National Kidney Foundation, irrespective of diagnosis, the stage of the disease is based on the level of kidney function: Stage Description GFR(mL/min/1.73 m(2)) 1 Kidney damage with normal or decreased GFR 90 2 Kidney damage with mild decrease in GFR 60-89 3 Moderate decrease in GFR 30-59 4 Severe decrease in GFR 15-29 5 Kidney failure <15 (or dialysis) 20 Desirable <150 Borderline high 150-199 High 200-499 Very High >500 21 Desirable <200 Borderline high 200-239 High >239 22 Low <40 Desirable: 40-60 High: >60 23 Desirable: <100 mg/dL Near Optimal: 100-129 mg/dL Borderline High: 130-159 mg/dL High: 160-189 mg/dL Very High: >189 mg/dL 24 Because ethnic data is not always readily available, this report includes an eGFR for both -Americans and non- Americans. The National Kidney Disease Education Program (NKDEP) does not endorse the use of the MDRD equation for patients that are not between the ages of 18 and 70, are , have extremes of body size, muscle mass, or nutritional status, or are non- or non-. According to the National Kidney Foundation, irrespective of diagnosis, the stage of the disease is based on the level of kidney function: Stage Description GFR(mL/min/1.73 m(2)) 1 Kidney damage with normal or decreased GFR 90 2 Kidney damage with mild decrease in GFR 60-89 3 Moderate decrease in GFR 30-59 4 Severe decrease in GFR 15-29 5 Kidney failure <15 (or dialysis) 25 PT IS FASTING 26 Because ethnic data is not always readily available, this report includes an eGFR for both -Americans and non- Americans. The National Kidney Disease Education Program (NKDEP) does not endorse the use of the MDRD equation for patients that are not between the ages of 18 and 70, are , have extremes of body size, muscle mass, or nutritional status, or are non- or non-. According to the National Kidney Foundation, irrespective of diagnosis, the stage of the disease is based on the level of kidney function: Stage Description GFR(mL/min/1.73 m(2)) 1 Kidney damage with normal or decreased GFR 90 2 Kidney damage with mild decrease in GFR 60-89 3 Moderate decrease in GFR 30-59 4 Severe decrease in GFR 15-29 5 Kidney failure <15 (or dialysis) 27 Desirable <150 Borderline high 150-199 High 200-499 Very High >500 28 Desirable <200 Borderline high 200-239 High >239 29 Low <40 Desirable: 40-60 High: >60 30 Desirable <100 Near Optimal 100-129 Borderline high 130-159 High 160-189 Very High >189 31 Anion gap measurement may be of limited value in the presence of any alkalosis, especially in a combined acid base disorder. . 32 A metabolite of Naproxen, O-desmethylnaproxen, has been shown to interfere with the Jendrassik-Kimani method for measuring total bilirubin. Samples from patients who have taken Naproxen have shown spurious elevation in total bilirubin levels. 33 Because ethnic data is not always readily available, this report includes an eGFR for both -Americans and non- Americans. The National Kidney Disease Education Program (NKDEP) does not endorse the use of the MDRD equation for patients that are not between the ages of 18 and 70, are , have extremes of body size, muscle mass, or nutritional status, or are non- or non-. According to the National Kidney Foundation, irrespective of diagnosis, the stage of the disease is based on the level of kidney function: Stage Description GFR(mL/min/1.73 m(2)) 1 Kidney damage with normal or decreased GFR 90 2 Kidney damage with mild decrease in GFR 60-89 3 Moderate decrease in GFR 30-59 4 Severe decrease in GFR 15-29 5 Kidney failure <15 (or dialysis) 34 CHOLESTEROL INTERPRETATION: Desirable: Less than 200 MG/DL Borderline-High Risk: 200-239 MG/DL High-Risk: 240 MG/DL and over 35 HDL INTERPRETATION: Undesirable: High Risk: Less than 40 MG/DL Desirable: Low Risk: Greater than 60 MG/DL 36 LDL INTERPRETATION: Low Risk Optimal Level: LDL Less than 100 MG/DL Near or Above Optimal: LDL 100-129 MG/DL Borderline High Risk: LDL 130-159 MG/DL High Risk: LDL 160-189 MG/DL Very High Risk: LDL Greater than 189 MG/DL 37 THERAPEUTIC TARGET FOR THE TREATMENT OF DIABETES MELLITUS PATIENTS IS <7% HBA1C, AND IN SELECTIVE PATIENTS <6.0%. PLEASE REFER TO [place] [employer] DIABETIC CARE GUIDELINES FOR FURTHER INFORMATION. 38 FASTING 39 CHOLESTEROL INTERPRETATION: Desirable: Less than 200 MG/DL Borderline-High Risk: 200-239 MG/DL High-Risk: 240 MG/DL and over 40 HDL INTERPRETATION: Undesirable: High Risk: Less than 40 MG/DL Desirable: Low Risk: Greater than 60 MG/DL 41 LDL INTERPRETATION: Low Risk Optimal Level: LDL Less than 100 MG/DL Near or Above Optimal: LDL 100-129 MG/DL Borderline High Risk: LDL 130-159 MG/DL High Risk: LDL 160-189 MG/DL Very High Risk: LDL Greater than 189 MG/DL 42 Anion gap measurement may be of limited value in the presence of any alkalosis, especially in a combined acid base disorder. . 43 Note change in reference range as of 05/07/08. The change was based on recommendations from the [place] [employer]. 44 Please note change in reference range effective 08 . 45 A metabolite of Naproxen, O-desmethylnaproxen, has been shown to interfere with the Jendrassik-Highmore method for measuring total bilirubin. Samples from patients who have taken Naproxen have shown spurious elevation in total bilirubin levels. 46 Because ethnic data is not always readily available, this report includes an eGFR for both -Americans and non- Americans. The National Kidney Disease Education Program (NKDEP) does not endorse the use of the MDRD equation for patients that are not between the ages of 18 and 70, are , have extremes of body size, muscle mass, or nutritional status, or are non- or non-. According to the National Kidney Foundation, irrespective of diagnosis, the stage of the disease is based on the level of kidney function: Stage Description GFR(mL/min/1.73 m(2)) 1 Kidney damage with normal or decreased GFR 90 2 Kidney damage with mild decrease in GFR 60-89 3 Moderate decrease in GFR 30-59 4 Severe decrease in GFR 15-29 5 Kidney failure <15 (or dialysis) Procedures Date Code Description Status 02/13/2019 92782 EKG Tracing & Interpretation Completed 01/21/2019 34959 Inject/Drain Joint/Bursa Major W/O US Completed 07/10/2018 32516 ECHO Transthoracic, Real-Time 2D With Doppler And Color Completed Flow 07/10/2018 20598 ECHO Transthoracic, Real-Time 2D With Doppler And Color Completed Flow 06/12/2018 97834 EKG Tracing & Interpretation Completed 05/22/2018 31062 Destruction ALL Benign Or Premalignant Lesion (Other Than Completed [place] 08/24/2017 06827 Arthroscopy Shoulder,W/Rotator Cuff Repair Completed 08/24/2017 07414 Arthroscopy Shoulder,W/Rotator Cuff Repair Completed 08/24/2017 52182 Arthroscopy,Shoulder Decompression Of Subacromial Space Completed W/Acromio 08/24/2017 95745 Arthroscopy,Shoulder Decompression Of Subacromial Space Completed W/Acromio 08/24/2017 65368 Arthroscopy,Shoulder,Distal Claviculectomy Incl Dist Completed Articular SR 08/24/2017 46256 Arthroscopy,Shoulder,Distal Claviculectomy Incl Dist Completed Articular SR 08/24/2017 05292 Arthroscopy Shoulder Debridement Extensive Completed 08/24/2017 28216 Arthroscopy Shoulder Debridement Extensive Completed 07/05/2017 63911 ECHO Transthoracic, Real-Time 2D With Doppler And Color Completed Flow 07/05/2017 56331 ECHO Transthoracic, Real-Time 2D With Doppler And Color Completed Flow 05/17/2017 96164 EKG Tracing & Interpretation Completed 04/04/2017 30724 Inject/Drain Joint/Bursa Major W/O US Completed 09/07/2016 03975 EKG Tracing & Interpretation Completed 07/03/2016 09532 ECHO Transthoracic, Real-Time 2D With Doppler And Color Completed Flow 12/24/2015 04393 EKG Tracing & Interpretation Completed 08/03/2015 41089 Holter Monitor Review (24 hr)dr review & interp only Completed 08/03/2015 08001 ECG Monitor/Recording W/Visual Superimposition Scanning Completed 07/30/2015 93307 Holter Monitor Review (24 hr)dr review & interp only Completed 07/30/2015 97357 ECG Monitor/Recording W/Visual Superimposition Scanning Completed 07/28/2015 63710 ECHO Transthoracic, Real-Time 2D With Doppler And Color Completed Flow 07/28/2015 03183 ECHO Transthoracic, Real-Time 2D With Doppler And Color Completed Flow 07/28/2015 62884 EKG Tracing & Interpretation Completed 10/20/2014 00128 EKG Tracing & Interpretation Completed 01/20/2014 16688 Holter Monitor Review (24 hr)dr review & interp only Completed 01/16/2014 50069 EKG Tracing & Interpretation Completed 01/13/2014 54026 ECHO Stress Test Incl Perf Contiuous ekg Monitoring W/Phys Completed Superv 01/13/2014 75350 ECHO Stress Test Incl Perf Contiuous ekg Monitoring W/Phys Completed Superv 12/22/2013 98380 Polysomnography Sleep Staging 4+ Parameters Completed 07/07/2013 00006 Holter Monitoring 24 HR New Completed 06/06/2013 62828 EKG Tracing & Interpretation Completed 04/15/2013 82273 Polysomnography Sleep Staging 4+ Parameters W/Cpap Completed 04/06/2013 69613 Polysomnography Sleep Staging 4+ Parameters W/Cpap Completed 01/24/2012 36983 ECHO Stress Test Incl Perf Contiuous ekg Monitoring W/Phys Completed Superv 01/19/2012 16195 ECHO Transthoracic, Real-Time 2D With Doppler And Color Completed Flow 01/01/2012 12550 EKG Tracing & Interpretation Completed 05/08/2011 07730 EKG Tracing & Interpretation Completed 11/04/2010 70547 ECHO Transthoracic, Real-Time 2D With Doppler And Color Completed Flow 10/14/2010 05284 EKG Tracing & Interpretation Completed 01/12/2010 93242 EKG Tracing & Interpretation Completed 11/19/2009 08980 ECHO Transthoracic, Real-Time 2D With Doppler And Color Completed Flow 07/29/2009 22840 EKG Tracing & Interpretation Completed 03/10/2009 05184 Selective Coronary Angioplasty Completed 03/10/2009 95138 S/I/R Inj Proc Vent And Or Atrial Completed 03/10/2009 17848 Coronary Angiography Completed 03/10/2009 45294 Inj Proc LFT Vent/LFT Atrl Angio Completed 03/10/2009 47355 Left Heart Catheterization Completed 03/10/2009 27560 EKG, Interpretation Only Completed 01/18/2009 85673 ECHO Transthorasic Realtime 2D W Doppler & Color Flow Hosp Completed 01/15/2009 73949 Treadmill Interp/Report Only Completed 01/15/2009 45975 Stress Test Supervsn W/Out I/R Completed 01/14/2009 73010 EKG Tracing & Interpretation Completed Encounters Type Date Location Provider Dx Diagnosis Office Visit 01/21/2019 Orthopedic Miguel F S46.011D Strain of 2:00p Services Of MD sasha Hillman/tend the rotator cuff of right shoulder, subs S46.111D Strain of musc/fasc/tend long hd bicep, right arm, subs M75.51 Bursitis of right shoulder Office Visit 12/10/2018 Orthopedic Miguel F S46.111D Strain of 2:15p Services Of MD sasha Katz/fasc/tend long C.M.A. hd bicep, right arm, subs S46.011D Strain of musc/tend the rotator cuff of right shoulder, subs M75.51 Bursitis of right shoulder M19.011 Primary osteoarthritis, right shoulder Office Visit 08/27/2018 Orthopedic Miguel Emery S46.111D Strain of 10:45a Services Of MD sasha Katz/fasc/tend long C.M.A. hd bicep, right arm, subs S46.011D Strain of musc/tend the rotator cuff of right shoulder, subs M75.51 Bursitis of right shoulder M19.011 Primary osteoarthritis, right shoulder Office Visit 06/12/2018 4:20p Pritchett Vidal S. I71.9 Aortic aneurysm [facility] [place] of unspecified site, without rupture I25.10 Athscl heart disease of [place] coronary artery w/o ang pctrs G47.33 Obstructive sleep apnea (adult) (pediatric) I10 Essential (primary) hypertension E66.9 Obesity, unspecified E78.2 Mixed hyperlipidemia R94.31 Abnormal electrocardiogram [ECG] [EKG] Office Visit 05/22/2018 8:00a [facility] D[facility]at[facility] Nate Swann, L82.1 Other seborrheic MD keratosis D22.9 Melanocytic nevi, unspecified Z08 Encntr for follow-up exam after trtmt for malignant neoplasm Z85.828 Personal history of other malignant neoplasm of skin L57.0 Actinic keratosis Office Visit 03/19/2018 Orthopedic Miguel Emery S46.111D Strain of 11:00a Services Of MD sasha Katz/fasc/tend long C.M.A. hd bicep, right arm, subs S46.011D Strain of musc/tend the rotator cuff of right shoulder, subs M75.51 Bursitis of right shoulder M19.011 Primary osteoarthritis, right shoulder Office Visit 02/12/2018 Orthopedic Miguel Emery S46.111D Strain of 8:30a Services Of MD sasha Katz/fasc/tend long C.M.A. hd bicep, right arm, subs S46.011D Strain of musc/tend the rotator cuff of right shoulder, subs M75.51 Bursitis of right shoulder Office Visit 12/13/2017 Orthopedic Miguel Emery S46.111D Strain of 8:15a Services Of MD sasha Katz/fasc/tend long C.M.A. hd bicep, right arm, subs M19.011 Primary osteoarthritis, right shoulder S46.011D Strain of musc/tend the rotator cuff of right shoulder, subs Office Visit 07/03/2017 1:00p Orthopedic Miguel Emery S46.011D Strain of Services Of MD sasha Katz/tend the C.M.A. rotator cuff of right shoulder, subs M75.51 Bursitis of right shoulder S46.111D Strain of musc/fasc/tend long hd bicep, right arm, subs Office Visit 05/24/2017 Orthopedic Miguel Emery S46.011D Strain of 3:30p Services Of MD [place] musc/tend the C.M.A. rotator cuff of right shoulder, subs Office Visit 05/17/2017 Lavern Drake S. G47.33 Obstructive sleep 8:40a Cardiology kandice Cat (adult) Conner Barker (pediatric) I10 Essential (primary) hypertension I71.9 Aortic aneurysm of unspecified site, without rupture I25.10 Athscl heart disease of [place] coronary artery w/o ang pctrs Office Visit 04/04/2017 3:15p Orthopedic Miguel Emery S46.011D Strain of Services Of MD sasha Katz/tend the C.M.A. rotator cuff of right shoulder, subs M19.011 Primary osteoarthritis, right shoulder M75.51 Bursitis of right shoulder S46.011D Strain of musc/tend the rotator cuff of right shoulder, subs Office Visit 03/22/2017 2:30p Orthopedic Miguel Emery M25.511 Pain in right Services Of MD [place] shoulder C.M.A. M25.511 Pain in right shoulder M75.51 Bursitis of right shoulder M25.511 Pain in right shoulder Office Visit 09/07/2016 Nader Drake S. G47.33 Obstructive sleep 4:40p Cardiology [place] apnea (adult) (pediatric) I10 Essential (primary) hypertension I71.9 Aortic aneurysm of unspecified site, without rupture I25.10 Athscl heart disease of [place] coronary artery w/o ang pctrs R94.31 Abnormal electrocardiogram [ECG] [EKG] Office Visit 07/04/2016 Orthopedic Miguel Emery S93.402A Sprain of 3:00p Services Of MD [place] unspecified C.M.A. ligament of left ankle, init encntr S93.402A Sprain of unspecified ligament of left ankle, init encntr S93.602A Unspecified sprain of left foot, initial encounter Office Visit 12/24/2015 Nader Drake S. I49.3 Ventricular 8:20a Cardiology [place] premature depolarization Z01.818 Encounter for other preprocedural examination G47.33 Obstructive sleep apnea (adult) (pediatric) I49.9 Cardiac arrhythmia, unspecified I10 Essential (primary) hypertension I25.10 Athscl heart disease of [place] coronary artery w/o ang pctrs I71.9 Aortic aneurysm of unspecified site, without rupture Office Visit 07/28/2015 Nader Drake S. G47.33 Obstructive sleep 9:00a Cardiology [place] apnea (adult) (pediatric) I25.10 Athscl heart disease of [place] coronary artery w/o ang pctrs I10 Essential (primary) hypertension E78.4 Other hyperlipidemia I49.9 Cardiac arrhythmia, unspecified I49.3 Ventricular premature depolarization R06.02 Shortness of breath Z01.818 Encounter for other preprocedural examination Office Visit 10/20/2014 Nader Drake S. 327.23 Obstructive Sleep 3:40p Cardiology [place] Apnea Adult & Pediatric 414.01 Coronary Atherosclerosis [place] 401.1 Hypertension Benign 272.4 Hyperlipidemia Other Unspec Office 04/09/2014 Neurosurgery Michael 724.03 Spinal Stenosis, Visit 9:45a Services Of Conner Núñez M.D. Lumbar Region W/ Neurogenic Claudication Office 03/12/2014 Neurosurgery Michael 724.03 Spinal Stenosis, Visit 11:00a Services Of Conner Núñez M.D. Lumbar Region W/ Neurogenic Claudication Office 01/16/2014 [facility] [place] S. 794.31 Electrocardiogram Visit 8:20a Can (ECG) (EKG) Abnormal [place] 327.23 Obstructive Sleep Apnea Adult & Pediatric 414.01 Coronary Atherosclerosis [place] 427.69 Premature Beats Other 401.1 Hypertension Benign 272.4 Hyperlipidemia Other Unspec Office Visit 01/13/2014 Pritchett Qutaybeh S. 327.23 Obstructive Sleep 3:30p [place] M.D. Apnea Adult & Pediatric 794.31 Electrocardiogram (ECG) (EKG) Abnormal 427.69 Premature Beats Other 414.01 Coronary Atherosclerosis [place] 401.1 Hypertension Benign Office Visit 12/04/2013 Sleep Disorder Ernie SK. 327.23 Obstructive Sleep 11:29a Kamaljit [place] M.D. Apnea Adult & Pediatric Office Visit 06/06/2013 Pritchett Quharvinderybeh S. 414.01 Coronary 3:00p Laureen Mcnamara M.D. [place] 401.1 Hypertension Benign 794.31 Electrocardiogram (ECG) (EKG) Abnormal 272.4 Hyperlipidemia Other Unspec 427.69 Premature Beats Other Office Visit 05/15/2013 Sleep Disorder Ernie SKHeather 327.23 Obstructive Sleep 11:53a Kamaljit [place] M.D. Apnea Adult & Pediatric Office Visit 02/11/2013 Cam[facility] Sleep Jude 786.09 Dyspnea & 3:48p Disorder [place] Respiratory Abnormalities Other Office Visit 01/01/2012 Pritchett Qugideoneh S. 414.01 Coronary 10:00a Laureen Mcnamara M.D. [place] 401.1 Hypertension Benign 272.4 Hyperlipidemia Other Unspec 794.31 Electrocardiogram (ECG) (EKG) Abnormal 425.9 Cardiomyopathy Secondary Unspecified Office Visit 05/08/2011 Pritchett Qugideoneh S. 414.01 Coronary 10:40a [place] M.D. Atherosclerosis [place] 401.1 Hypertension Benign 272.4 Hyperlipidemia Other Unspec 794.31 Electrocardiogram (ECG) (EKG) Abnormal Office Visit 10/14/2010 Pritchett Vidal S. 425.9 Cardiomyopathy 10:00a [place] M.D. Secondary Unspecified 414.01 Coronary Atherosclerosis [place] 401.1 Hypertension Benign 272.4 Hyperlipidemia Other Unspec Office Visit 01/12/2010 Pritchett Qusadie S. 425.9 Cardiomyopathy 9:00a [place] M.D. Secondary Unspecified 414.01 Coronary Atherosclerosis [place] 401.1 Hypertension Benign 272.4 Hyperlipidemia Other Unspec Office Visit 07/29/2009 2:40p [facility] [place] S. 786.50 Pain Chest [place] Unspec 425.9 Cardiomyopathy Secondary Unspecified 414.01 Coronary Atherosclerosis [place] 401.1 Hypertension Benign 272.4 Hyperlipidemia Other Unspec Office Visit 03/17/2009 9:45a [facility] [place] S. 786.50 Pain Chest [place] Unspec 425.9 Cardiomyopathy Secondary Unspecified 414.01 Coronary Atherosclerosis [place] 401.1 Hypertension Benign 272.4 Hyperlipidemia Other Unspec Office Visit 03/10/2009 12:00p [facility] [place] S. 786.50 Pain Chest [place] Unspec 425.9 Cardiomyopathy Secondary Unspecified 786.05 Shortness Of Breath 401.1 Hypertension Benign Office Visit 02/19/2009 3:50p [facility] [place] S. 786.50 Pain Chest [place] Unspec 401.1 Hypertension Benign 272.4 Hyperlipidemia Other Unspec 786.05 Shortness Of Breath Office Visit 01/14/2009 Pritchett Vidal S. 401.1 Hypertension 9:40a Cardiology [place] Benign 794.31 Electrocardiogram (ECG) (EKG) Abnormal 272.4 Hyperlipidemia Other Unspec 786.50 Pain Chest Unspec 786.05 Shortness Of Breath Plan of Treatment Future Appointment(s):09/02/2019 3:00 pm - [facility] ECHO Schedule at [facility]03/04/2019 2:30 pm - Miguel Katz MD at Orthopedic [facility]02/13/2019 - [place] M.D.I25.10 Atherosclerotic heart disease of [place] coronary artery withFollow up:8 months ovG47.33 Obstructive sleep apnea (adult) (pediatric)I10 Essential (primary) [id number] Aortic ectasia, unspecified siteNew Orders:Echocardiogram, Scheduled: 09/02/19E78.2 Mixed [id number] Obesity, unspecified
[2019-02-25] MEDS ORDERED: Silver Nitrate/Potassium Nitr* 1 EA STICK ONE ×2 (02:08→02:13)
[2019-02-25] MEDS ORDERED: Saline NASAL SPRAY 0.65%* BTL BOTH NARES SCH (02:30)
[2019-02-25] MEDS ORDERED: Lidocaine/Epineph/Tetraca GEL* 3 ML GEL IN SYR ONE (02:40)
[2019-02-25] MEDS ORDERED: Amoxicillin/Clavulanate TAB* 875 MG PO ONE (03:02)
[2019-02-25 03:13] VITALS: BP 138/94
--- NOTE | 2019-02-25 03:34 | ED ---
Throat Pain/Nasal Congestion - HPI Summary HPI Summary: Patient is a 53 y/o M presenting to ED with multiple episodes of epistaxis since 02/24/19, 0530. Patient reports that the bleeding has mostly been from his right nostril. He states that the longest interval he has gone without an episode is 1.5 hours. Patient is on Plavix and ASA. He denies Hx of stents. PMHx of HTN, CAD is endorsed. Patient is on BP meds and states that his BP is under control. notes that the patient has had previous episodes of epistaxis. On triage, pain is denied, nothing is noted to aggravate/alleviate Sx. Home medications and allergies are reviewed. - History of Current Complaint Chief Complaint: EDEpistaxis Time Seen by Provider: 02/25/19 01:44 Hx Obtained From: Patient Onset/Duration: Lasting Days, Still Present Severity: Mild Associated Signs And Symptoms: Positive: Nasal Discharge - epistaxis Cough: None - Allergies/Home Medications Allergies/Adverse Reactions: Allergies Allergy/AdvReac Type Severity Reaction Status Date / Time ENVIRONMENTAL Allergy Mild Congestion Uncoded 02/25/19 01:25 PMH/Surg Hx/FS Hx/Imm Hx Endocrine/Hematology History: Denies: Hx Diabetes Cardiovascular History: Reports: Hx Coronary Artery Disease, Hx Hypertension - controlled with medication, Other Cardiovascular Problems/Disorders - irregular HR, wore halter monitor approx 2 yrs ago Denies: Hx Pacemaker/ICD Respiratory History: Reports: Hx Sleep Apnea GI History: Reports: Hx Gastroesophageal Reflux Disease History: Reports: Hx Kidney Stones - hx of in past, none in a few years Denies: Hx Renal Disease Musculoskeletal History: Reports: Hx Arthritis, Other Musculoskeletal History - back pain, over-use, possible arthritis Sensory History: Reports: Hx Contacts or Glasses - glasses Denies: Hx Hearing Aid Opthamlomology History: Reports: Hx Contacts or Glasses - glasses Neurological History: Reports: Other Neuro Impairments/Disorders - pt has restless leg syndrome Psychiatric History: Reports: Hx Anxiety - controlled with medication, Hx Depression - controlled with medication Denies: Hx Panic Disorder - Cancer History Cancer Type, Location and Year: [place] Hx Chemotherapy: No - Surgical History Surgery Procedure, Year, and Place: RIGHT SHOULDER 08/2017. REMOVED CANCER FROM [place] Hx Anesthesia Reactions: No Infectious Disease History: No Infectious Disease History: Denies: Traveled Outside the [place] in Last 30 Days - Family History Known Family History: Positive: Cardiac Disease, Hypertension - Social History Alcohol Use: Occasionally Alcohol Amount: 1-2 drinks a week Substance Use Type: Reports: None Smoking Status (MU): Former Smoker Amount Used/How Often: smoked for approx 15 yrs, 1/2 pk Review of Systems Negative: Fever - ON VITALS, TEMP IS 97.4 F Positive: Epistaxis All Other Systems Reviewed And Are Negative: Yes Physical Exam - Summary Physical Exam Summary: VITAL SIGNS: Reviewed. GENERAL: Patient is a well-developed and nourished male who is lying comfortable in the stretcher. Patient is not in any acute respiratory distress. HEAD AND FACE: No signs of trauma. No ecchymosis, hematomas or skull depressions. No sinus tenderness. Raw areas of nasal mucosa, right more than left, no active bleeding EYES: PERRLA, EOMI x 2, No injected conjunctiva, no nystagmus. EARS: Hearing grossly intact. Ear canals and tympanic membranes are within normal limits. MOUTH: Oropharynx within normal limits. NECK: Supple, trachea is midline, no adenopathy, no JVD, no carotid bruit, no c- spine tenderness, neck with full ROM CHEST: Symmetric, no tenderness at palpation LUNGS: Clear to auscultation bilaterally. No wheezing or crackles. CVS: Regular rate and rhythm, S1 and S2 present, no murmurs or gallops appreciated. ABDOMEN: Soft, non-tender. No signs of distention. No rebound no guarding, and no masses palpated. Bowel sounds are normal. EXTREMITIES: FROM in all major joints, no edema, no cyanosis or clubbing. NEURO: Alert and oriented x 3. No acute neurological deficits. Speech is normal and follows commands. SKIN: Dry and warm Triage Information Reviewed: Yes Vital Signs On Initial Exam: Initial Vitals Temp Pulse Resp BP Pulse Ox 97.4 F 92 14 137/94 97 02/25/19 01:24 02/25/19 01:24 02/25/19 01:24 02/25/19 01:24 02/25/19 01:24 Vital Signs Reviewed: Yes Diagnostics - Vital Signs Vital Signs Temp Pulse Resp BP Pulse Ox 02/25/19 03:12 98.1 F 103 16 138/94 96 02/25/19 01:24 97.4 F 92 14 137/94 97 - Laboratory Lab Statement: Any lab studies that have been ordered have been reviewed, and results considered in the medical decision making process. Re-Evaluation - Re-Evaluation First Eval Re-Evaluation Time: 02:15 Comment: Both nares were cauterized using silver nitrate. Aftewards, patient self-administered saline nasal spray and right nare started to bleed. Rhino rocket was placed in right nare. Second Eval Re-Evaluation Time: 03:02 Change: Improved Comment: Good hemostasis. Patient will be discharged to home and follow up with ENT doctor by tomorrow. Prescription for Augmentin given. Strict return precautions were given. Patient is agreeable with this plan. EENT Course/Dx - Course Course Of Treatment: Patient is a 53 y/o M presenting to ED with multiple episodes of epistaxis since 02/24/19529. Patient reports that the bleeding has mostly been from his right nostril. He states that the longest interval he has gone without an episode is 1.5 hours. Patient is on Plavix and ASA. He denies Hx of stents. PMHx of HTN, CAD is endorsed. Patient is on BP meds and states that his BP is under control. notes that the patient has had previous episodes of epistaxis. On physical exam, patient is noted to have raw areas of nasal mucosa, right more than left, no active bleeding. 0215 - Both nares were cauterized using silver nitrate. Aftewards, patient self- administered saline nasal spray and right nare started to bleed. Rhino rocket was placed in right nare. 0302 - Good hemostasis. Patient will be discharged to home and follow up with ENT doctor by tomorrow. Prescription for Augmentin given. Strict return precautions were given. Patient is agreeable with this plan. - Diagnoses Provider Diagnoses: Epistaxis Discharge - Sign-Out/Discharge Documenting (check all that apply): Patient Departure - discharge Patient Received Moderate/Deep Sedation with Procedure: No - Discharge Plan Condition: Stable Disposition: HOME Prescriptions: Amoxicillin/Clavulanate TAB* [Augmentin TAB 875*] 875 mg PO BID #10 tab Patient Education Materials: Nosebleed (ED) Referrals: Michael Ch MD [Primary Care Provider] - Sharath Osei MD [Medical Doctor] - 1 Day Additional Instructions: PLEASE RETURN TO THE ED IMMEDIATELY FOR WORSENING OR CONCERNING SYMPTOMS. FOLLOW UP WITH ENT DOCTOR BY TOMORROW. - Attestation Statements Document Initiated by Scribe: Yes Documenting Scribe: SRUTHI PEREZ Provider For Whom Karenibdarshana is Documenting (Include Credential): LIO CABALLERO MD Scribe Attestation: ISRUTHI, scribed for LIO CABALLERO MD on 02/25/19 at 0341. Status of Scribe Document: Ready
== END 2019-02-25 03:12 | disposition home or self-care (01) ==
LOC: ED 01:11
DX: R04.0 Epistaxis (principal); I25.10 Atherosclerotic heart disease of native coronary artery without angina pectoris; I10 Essential (primary) hypertension; Z79.01 Long term (current) use of anticoagulants; Z79.82 Long term (current) use of aspirin; F41.9 Anxiety disorder, unspecified; F32.9 Major depressive disorder, single episode, unspecified; Z87.891 Personal history of nicotine dependence
CPT/HCPCS: 30901; 99282; A9270-GY